=== PATIENT | male | born 1960 | race Caucasian/White ===

== ENCOUNTER 2023-06-19 16:08 | Emergency (ER) | payer OTHER, BC ==
[2023-06-19] MEDS ORDERED: Diphtheria,Pertussis(Acell),Tetanus Vaccine 0.5 ML Syringe IM ONE (16:35)
[2023-06-19] MEDS ORDERED: Lidocaine 1% 5 ML VIAL INJECT ONE (17:07)
== END 2023-06-19 16:58 | disposition home or self-care (01) ==
LOC: LB.ED 16:08
DX: S61.211A Laceration without foreign body of left index finger without damage to nail, initial encounter (principal); Z23 Encounter for immunization; Z79.899 Other long term (current) drug therapy; W26.8XXA Contact with other sharp object(s), not elsewhere classified, initial encounter
CPT/HCPCS: 12002; 90471; 90715; 99282; 99282-25